=== PATIENT | female | born 1980 | race Caucasian/White ===

== ENCOUNTER 2017-07-06 01:31 | Emergency (ER) | payer SELFPAY | END 2017-07-06 02:32 | disposition home or self-care (01) | LOC: D.ER 01:31 | DX: S93.401A Sprain of unspecified ligament of right ankle, initial encounter (principal); W10.9XXA Fall (on) (from) unspecified stairs and steps, initial encounter; Y93.89 Activity, other specified; Y92.019 Unspecified place in single-family (private) house as the place of occurrence of the external cause; F17.200 Nicotine dependence, unspecified, uncomplicated ==

== ENCOUNTER 2020-04-03 05:43 | Day surgery (SDC) | payer MEDICAID ==
[~2020-04-03] VITALS: Ht 167.6 cm; Wt 63.0 kg
[2020-04-03 06:12] LABS: HEMATOCRIT 40.8 % (36.0-48.0); MCH 29.3 pg (26.0-34.0); MCHC 31.9 g/dL (31.0-37.0); MCV 92.1 fL (80.0-100.0); MEAN PLATELET VOLUME 9.7 fL (7.4-10.4); RBC 4.43 10x6/uL (4.00-5.40); RDW 13.2 % (11.5-14.5); WBC 9.7 10x3/uL (4.8-10.8)
[2020-04-03 06:28] LABS: HCG SERUM NEGATIVE (NEGATIVE)
[2020-04-03 06:53] VITALS: Ht 167.6 cm; Wt 63.0 kg
--- NOTE | 2020-04-03 12:18 | NUR ---
1200 IV D/C'D WITH CANNULA INTACT, PRESSURE HELD AND DRSG PLACED. DISCHARGE INSTRUCTIONS GIVEN AND PT VERBALIZED AN UNDERSTANDING. SLING WITH WAIST BELT PLACED AND ADJUSTED. STATES PAIN IS NEGLIGIBLE AND IS READY TO GO HOME
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
== END 2020-04-03 12:10 | disposition home or self-care (01) ==
LOC: D.OPS 05:43 → D.PAN 07:45 → D.OPS 12:10 → D.PAN 12:45 → D.OPS 13:45 → D.PAN 13:45 → D.OPS 14:35
PROVIDERS: Anesthesiology; ATTEND Orthopaedic Surgery
DX: S42.202A Unspecified fracture of upper end of left humerus, initial encounter for closed fracture (principal); X58.XXXA Exposure to other specified factors, initial encounter